=== PATIENT | male | born 1945 | race Hispanic/Latino ===

== ENCOUNTER 2020-08-23 19:42 | Observation (INO) | payer MEDICARE ==
[2020-08-23] MEDS ORDERED: SODIUM CHLORIDE 0.9% 1000 ML 1,000 ML IV ONE (19:56)
[2020-08-23] MEDS ORDERED: ONDANSETRON 4 MG/2 ML INJ IV ONE (19:56)
--- NOTE | 2020-08-23 20:02 | Emergency Department Report ---
ED Syncope HPI - General Chief Complaint: Chest Pain Stated Complaint: SYNCOPE/LOW BLOOD PRESSURE Time Seen by Provider: 08/23/20 19:52 Source: patient, EMS - History of Present Illness Initial Comments: 75-year-old male, no past medical history, presents to ED following syncopal episode. Patient lives in a personal long-term. He was table eating dinner, when he vomited and passed out. Upon EMS arrival, patient was somewhat confused, diaphoretic, hypotensive (systolic in the 80s), and bradycardic. Patient is currently awake and alert. He reports some chest tightness. He denies any headache, abdominal pain, fever, diarrhea, cough, shortness of breath. Patient able to state his name and location, however he states that the year is 2019. He also states that the month is July. Patient actively vomited stomach contents during my assessment. Timing/Prior Episodes: single episode today Precipitating Factors: Positive: none Context: sitting Loss of Consciousness: brief (seconds) Current Symptoms: chest pain, nausea. denies: dizziness, headache - Related Data Allergies/Adverse Reactions: Allergies No Known Allergies Allergy (Verified 08/24/20 00:26) Home Medications: Ambulatory Orders Aspirin [Adult Aspirin] 81 mg PO DAILY 08/24/20 Atorvastatin Calcium [Lipitor] 80 mg PO QHS 08/24/20 Clopidogrel [Plavix] 75 mg PO QDAY 08/24/20 Divalproex [Brendan SMALL] 250 mg PO TID 08/24/20 Metformin HCl [metFORMIN] 1,000 mg PO BID 08/24/20 QUEtiapine [SEROquel] 200 mg PO QHS 08/24/20 donepeziL [Aricept] 10 mg PO QDAY 08/24/20 ED Review of Systems ROS: Stated complaint: SYNCOPE/LOW BLOOD PRESSURE Other details as noted in HPI Comment: All other systems reviewed and negative Constitutional: denies: chills, fever Respiratory: denies: cough, shortness of breath Cardiovascular: chest pain Gastrointestinal: nausea, vomiting. denies: abdominal pain, diarrhea Neurological: denies: headache ED Past Medical Hx - Past Medical History Previous Medical History?: No - Surgical History Past Surgical History?: No - Social History Smoking Status: Never Smoker Substance Use Type: None - Medications Home Medications: Home Medications Medication Instructions Recorded Confirmed Last Taken Type Aspirin [Adult Aspirin] 81 mg PO DAILY 08/24/20 08/24/20 Unknown History Atorvastatin Calcium [Lipitor] 80 mg PO QHS 08/24/20 08/24/20 Unknown History Clopidogrel [Plavix] 75 mg PO QDAY 08/24/20 08/24/[address] [DepaKOTE DR] 250 mg PO TID 08/24/20 08/24/20 Unknown History Metformin HCl [metFORMIN] 1,000 mg PO BID 08/24/20 08/24/20 Unknown History QUEtiapine [SEROquel] 200 mg PO QHS 08/24/20 08/24/20 Unknown History donepeziL [Aricept] 10 mg PO QDAY 08/24/20 08/24/20 Unknown History ED Physical Exam - General Limitations: No Limitations General appearance: alert, in no apparent distress - Head Head exam: Present: atraumatic, normocephalic - Eye Eye exam: Present: normal appearance, PERRL, EOMI - ENT ENT exam: Present: mucous membranes moist - Neck Neck exam: Present: normal inspection - Respiratory Respiratory exam: Present: normal lung sounds bilaterally. Absent: respiratory distress - Cardiovascular Cardiovascular Exam: Present: regular rate, normal rhythm - GI/Abdominal GI/Abdominal exam: Present: soft. Absent: distended, tenderness - Extremities Exam Extremities exam: Present: normal inspection - Neurological Exam Neurological exam: Present: alert. Absent: oriented X3 (oriented to self and place, states year is 2019) - Psychiatric Psychiatric exam: Present: normal affect, normal mood - Skin Skin exam: Present: warm, dry, intact, normal color. Absent: rash ED Course Vital Signs 08/23/20 08/23/20 08/23/20 19:50 19:54 20:00 Temperature 98.5 F Pulse Rate 91 H 80 Respiratory 19 18 17 Rate Blood Pressure 138/66 129/61 O2 Sat by Pulse 92 100 95 Oximetry 08/23/20 08/23/20 08/23/20 20:14 20:20 20:33 Temperature Pulse Rate Respiratory Rate Blood Pressure 122/68 122/68 134/65 O2 Sat by Pulse 100 19 L Oximetry 08/23/20 08/23/20 08/23/20 20:46 21:00 21:16 Temperature Pulse Rate Respiratory Rate Blood Pressure 127/64 131/80 120/63 O2 Sat by Pulse 97 99 95 Oximetry 08/23/20 08/23/20 08/23/20 21:30 21:45 22:00 Temperature Pulse Rate 80 Respiratory 16 Rate Blood Pressure 118/63 129/61 122/68 O2 Sat by Pulse 96 95 Oximetry 08/23/20 08/23/20 08/23/20 22:15 22:30 22:45 Temperature Pulse Rate 99 H Respiratory 13 Rate Blood Pressure 134/65 127/86 133/91 O2 Sat by Pulse 98 Oximetry 08/23/20 08/23/20 08/23/20 23:00 23:16 23:30 Temperature Pulse Rate Respiratory Rate Blood Pressure 133/91 124/71 134/65 O2 Sat by Pulse 97 98 97 Oximetry 08/23/20 23:46 Temperature Pulse Rate Respiratory Rate Blood Pressure 128/76 O2 Sat by Pulse 100 Oximetry ED Medical Decision Making - Lab Data Result diagrams: 08/23/20 20:09 08/23/20 20:09 - EKG Data -: EKG Interpreted by [facility] EKG shows normal: sinus rhythm, axis, QRS complexes, ST-T waves Rate: normal - EKG Data Interpretation: no acute changes, other (prolonged MN) - Radiology Data Radiology results: report reviewed, image reviewed - Medical Decision Making 75-year-old male presents to ED following syncopal episode at his personal long-term. Patient was evidently sitting at the dinner table when he passed out. He denies any precipitating symptoms. Patient currently is reporting tightness in his chest. He is unsure if he experienced the pain prior to his syncopal episode. Upon EMS arrival, patient was hypotensive and diaphoretic. Here in ED blood pressure is normal. EKG negative for any acute findings. Troponin is negative as well. CTA chest shows no evidence of PE or dissection, or any other acute abnormalities. CT abdomen pelvis was also obtained due to patient's vomiting, and it is also unremarkable. Patient will be admitted to hospitalist, Dr. Flores, for further management of his syncope and chest pain. - Differential Diagnosis Arrhythmia, ACS, PE, bowel obstruction Critical care attestation.: If time is entered above; I have spent that time in minutes in the direct care of this critically ill patient, excluding procedure time. ED Disposition Clinical Impression: Syncope, Chest pain Disposition: OP ADMIT IP TO THIS HOSP Is pt being admited?: Yes Condition: Stable Time of Disposition: 23:23 HEART Score - HEART Score History: Slightly suspicious EKG: Normal Age: > 65 Risk factors: No known risk factors Troponin: Troponin T < 0.010 ng/mL (0.00-0.029) 08/23/20 22:37 Troponin: < normal limit HEART Score: 2
--- NOTE | 2020-08-23 20:13 | XRay Report ---
CHEST 1 VIEW 08/23/2020 7:06 PM INDICATION / CLINICAL INFORMATION: chest pain. COMPARISON: None available. FINDINGS: SUPPORT DEVICES: None. HEART / MEDIASTINUM: Cardiac silhouette demonstrates no significant abnormality. Aortic arch demonstr ates mild calcification. Hilar and mediastinal contours are otherwise unremarkable. LUNGS / PLEURA: No significant pulmonary or pleural abnormality. No pneumothorax. ADDITIONAL FINDINGS: No significant additional findings. IMPRESSION: 1. No acute findings. Signer Name: Calvin Aguilera MD Signed: 08/23/2020 8:09 PM Workstation Name: [id number]
[2020-08-23 20:21] LABS: Hematocrit 33.9 % (35.5-45.6); Hemoglobin 11.4 gm/dl (11.8-15.2); Mean Corpuscular HGB Conc 34 % (32-34); Mean Corpuscular Volume 95 fl (84-94); Platelet Count 321 K/mm3 (140-440); Red Blood Count 3.56 M/mm3 (3.65-5.03); Red Cell Distribution Width 14.5 % (13.2-15.2)
[2020-08-23 20:32] LABS: INR 1.04 (0.87-1.13)
[2020-08-23 20:44] LABS: Partial Thromboplastin Time 21.1 Sec. (24.2-36.6)
[2020-08-23 20:47] LABS: Alanine Aminotransferase 6 units/L (7-56); Albumin 3.1 g/dL (3.9-5); BUN/Creatinine Ratio 26; Blood Urea Nitrogen 23 mg/dL (9-20); Calcium 7.7 mg/dL (8.4-10.2); Hemolysis Index 14
[2020-08-23 20:56] LABS: Bilirubin,Direct < 0.2 mg/dL (0-0.2)
[2020-08-23 21:03] LABS: Myelocytes # (Manual) 0.4 K/mm3; Total Cells Counted 100
--- NOTE | 2020-08-23 22:26 | Cat Scan Report ---
CTA CHEST, CT ABDOMEN AND PELVIS WITH IV CONTRAST INDICATION / CLINICAL INFORMATION: chest pain. TECHNIQUE: Axial CT images were obtained through the chest, abdomen, and pelvis after 100 cc Omnipaque 350 IV co ntrast. Chest imaging performed per CTA PE protocol. All CT scans at this location are performed usin g CT dose reduction for ALARA by means of automated exposure control. COMPARISON: Chest radiograph 08/23/2020 FINDINGS: NECK BASE: No significant abnormality. HEART: Multivessel coronary artery atherosclerotic calcification. MEDIASTINUM and MEME: No significant abnormality. LUNGS/PLEURA: Patchy subsegmental volume loss in the bilateral lung bases. Moderate apical predominan t pulmonary emphysema. No definite suspicious pulmonary nodule. No pulmonary mass. No pleural effusio n or pneumothorax. HEPATOBILIARY: No significant abnormality. PANCREAS/SPLEEN/ADRENALS: No significant abnormality. GENITOURINARY: 1.5 cm left simple renal cyst as well as a few other focal hypodensities which are too small to definitely characterize, possible cysts. No solid renal mass. No obstructive uropathy. Blad rosalio demonstrates no significant abnormality. GASTROINTESTINAL/MESENTERY: Diverticulosis coli without evidence of diverticulitis. No bowel obstruct ion or inflammation. Tiny hiatal hernia. Mild gastric wall thickening at the distal portion could rep resent gastritis. No free air or significant free fluid is visualized. RETROPERITONEUM: No significant adenopathy. REPRODUCTIVE ORGANS: No significant abnormality. VASCULAR: Satisfactory opacification of the pulmonary arteries without filling defect to suggest pulm onary thromboembolism. Thoracic aorta demonstrates moderate mixed density atherosclerosis. Abdominal aorta demonstrates severe extensive atherosclerosis without convincing evidence of hemodynamically si gnificant stenosis. No acute vascular abnormality is noted. BODY WALL: Small bilateral fat-containing inguinal hernias. SKELETAL SYSTEM: Nondisplaced fracture at the lateral right 10th rib, age-indeterminate. No aggressiv e osseous lesion. IMPRESSION: 1. No CT evidence of pulmonary embolism. 2. Patchy subsegmental volume loss in the bilateral lung bases could represent atelectasis or consoli dation. 3. Mild gastric wall thickening predominantly at the antrum possibly representing gastritis. 4. Diverticulosis coli without evidence of diverticulitis. 5. Additional findings as above. Signer Name: Calvin Aguilera MD Signed: 08/23/2020 10:22 PM Workstation Name: [id number]
[2020-08-23] MEDS ORDERED: ASPIRIN 325 MG TAB PO ONE (23:21)
[2020-08-24] MEDS ORDERED: MORPHINE 2 MG/1 ML INJ IV PRN (00:12)
[2020-08-24] MEDS ORDERED: ONDANSETRON 4 MG/2 ML INJ IV PRN (00:12)
[2020-08-24] MEDS ORDERED: ACETAMINOPHEN 325 MG TAB PO PRN (00:14)
[2020-08-24] MEDS: HEPARIN 5,000 UNIT/1 ML VIAL SUB-Q SCH ×3 (00:52→21:29)
--- NOTE | 2020-08-24 03:20 | History and Physical Report ---
History of Present Illness Date of examination: 08/23/20 Date of admission: 08/23/20 23:24 Chief complaint: Chief complaint is syncopal attack History of present illness: History of presenting illness, patient is a 75-year-old male who came from a personal usp, patient was noted by the facility to be sitting down and eating and then vomited and subsequently passed out. There was no prior history of chest pain shortness of breath fever or dizziness and patient was subsequently transferred to the emergency room by EMS and found to be diaphoretic with low blood pressure and bradycardia. There was history of chest tightness and confusion but patient denied history of fever, chills, shortness of breath, cough or body aches Past History Past Surgical History: No surgical history Social history: no significant social history Family history: no significant family history Medications and Allergies Allergies Allergy/AdvReac Type Severity Reaction Status Date / Time No Known Allergies Allergy Verified 08/24/20 00:26 Home Medications Medication Instructions Recorded Confirmed Last Taken Type Aspirin [Adult Aspirin] 81 mg PO DAILY 08/24/20 08/24/20 Unknown History Atorvastatin Calcium [Lipitor] 80 mg PO QHS 08/24/20 08/24/20 Unknown History Clopidogrel [Plavix] 75 mg PO QDAY 08/24/20 08/24/[address] [DepStasTE DR] 250 mg PO TID 08/24/20 08/24/20 Unknown History Metformin HCl [metFORMIN] 1,000 mg PO BID 08/24/20 08/24/20 Unknown History QUEtiapine [SEROquel] 200 mg PO QHS 08/24/20 08/24/20 Unknown History donepeziL [Aricept] 10 mg PO QDAY 08/24/20 08/24/20 Unknown History Active Meds: Active Medications Acetaminophen (Acetaminophen 325 Mg Tab) 650 mg PO Q4H PRN PRN Reason: Headache Aspirin (Aspirin 325 Mg Tab) 325 mg PO QDAY [facility] Heparin Sodium (Porcine) (Heparin 5,000 Unit/1 Ml Vial) 5,000 unit SUB-Q Q12HR ESTEFANY Last Admin: 08/24/20 00:52 Dose: 5,000 unit Documented by: Sodium Chloride (Nacl 0.9% 1000 Ml) 1,000 mls @ 75 mls/hr IV DIRECT ESTEFANY Morphine Sulfate (Morphine 2 Mg/1 Ml Inj) 2 mg IV Q4H PRN PRN Reason: Pain, Moderate (4-6) Ondansetron HCl (Ondansetron 4 Mg/2 Ml Inj) 4 mg IV Q8H PRN PRN Reason: Nausea And Vomiting Review of Systems Constitutional: sweats, weakness, no fever, no chills, no anorexia, no fatigue, no malaise Eyes: bilateral: other (NO BILATERAL EYE SYMPTOMS) Ears, nose, mouth and throat: no ear pain Cardiovascular: chest pain, syncope, no orthopnea, no palpitations, no rapid/irregular heart beat, no edema, no lightheadedness, no shortness of breath Respiratory: no cough, no shortness of breath, no dyspnea on exertion, no congestion, no wheezing Gastrointestinal: nausea, vomiting, no abdominal pain, no diarrhea, no constipation, no hematemesis Genitourinary Male: no hematuria, no urinary frequency, no urinary hesitancy, no nocturia Rectal: no pain Musculoskeletal: no neck stiffness, no neck pain Integumentary: no rash, no pruritis, no redness, no sores Neurological: weakness, confusion, no parathesias, no numbness, no tingling, no seizures, no syncope, no tremors, no vertigo, no headaches Psychiatric: no anxiety, no depression Endocrine: no polydipsia, no polyuria, no nocturia Hematologic/Lymphatic: no easy bruising, no easy bleeding Exam - Constitutional Vitals: Temp Pulse Resp BP Pulse Ox 98.5 F 99 H 13 132/77 98 08/23/20 19:50 08/24/20 01:07 08/23/20 22:30 08/24/20 00:45 08/24/20 00:00 General appearance: Present: mild distress - EENT Eyes: Present: PERRL, EOM intact ENT: hearing intact, clear oral mucosa - Neck Neck: Present: supple, normal ROM - Respiratory Respiratory effort: normal - Cardiovascular Rhythm: regular Heart Sounds: Present: S1 & S2. Absent: systolic murmur, diastolic murmur - Extremities Extremities: no ischemia, No edema - Abdominal General gastrointestinal: Present: soft, non-tender, non-distended. Absent: tender, distended, rigid, hepatomegaly, splenomegaly Male genitourinary: Present: deferred - Rectal Rectal Exam: deferred - Integumentary Integumentary: Present: clear, warm, dry - Musculoskeletal Musculoskeletal: generalized weakness - Psychiatric Psychiatric: appropriate mood/affect HEART Score - HEART Score EKG: Normal Age: > 65 Risk factors: No known risk factors Troponin: Troponin T < 0.010 ng/mL (0.00-0.029) 08/23/20 22:37 Troponin: < normal limit - Critical Actions Critical Actions: 0-3 pts:0.9-1.7%risk of adverse cardiac event.Candidate for discharge Results - Labs CBC & Chem 7: 08/23/20 20:09 08/23/20 20:09 Labs: Laboratory Last Values WBC 7.2 K/mm3 (4.5-11.0) 08/23/20 20: RBC 3.56 M/mm3 (3.65-5.03) L 08/23/20 20: Hgb 11.4 gm/dl (11.8-15.2) L 08/23/20 20: Hct 33.9 % (35.5-45.6) L 08/23/20 20: MCV 95 fl (84-94) H 08/23/20 20:09 MCH 32 pg (28-32) 08/23/20 20:09 MCHC 34 % (32-34) 08/23/20 20:09 RDW 14.5 % (13.2-15.2) 08/23/20 20:09 Plt Count 321 K/mm3 (140-440) 08/23/20 20:09 Add Manual Diff Complete 08/23/20 20: Total Counted 100 08/23/20 20:09 Seg Neuts % (Manual) 58.0 % (40.0-70.0) 08/23/20 20:09 Lymphocytes % (Manual) 32.0 % (13.4-35.0) 08/23/20 20:09 Monocytes % (Manual) 4.0 % (0.0-7.3) 08/23/20 20:09 Metamyelocytes % 1.0 % 08/23/20 20:09 Myelocytes % 5.0 % 08/23/20 20:09 Promyelocytes % 0 % 08/23/20 20:09 Nucleated RBC % Not Reportable 08/23/20 20: Seg Neutrophils # Man 4.2 K/mm3 (1.8-7.7) 08/23/20 20:09 Band Neutrophils # 0.0 K/mm3 08/23/20 20:09 Lymphocytes # (Manual) 2.3 K/mm3 (1.2-5.4) 08/23/20 20:09 Abs React Lymphs (Man) 0.0 K/mm3 08/23/20 20:09 Monocytes # (Manual) 0.3 K/mm3 (0.0-0.8) 08/23/20 20:09 Eosinophils # (Manual) 0.0 K/mm3 (0.0-0.4) 08/23/20 20:09 Basophils # (Manual) 0.0 K/mm3 (0.0-0.1) 08/23/20 20:09 Metamyelocytes # 0.1 K/mm3 08/23/20 20:09 Myelocytes # 0.4 K/mm3 08/23/20 20:09 Promyelocytes # 0.0 K/mm3 08/23/20 20:09 Blast Cells # 0.0 K/mm3 08/23/20 20:09 WBC Morphology Not Reportable 08/23/20 20:09 Hypersegmented Neuts Not Reportable 08/23/20 20:09 Hyposegmented Neuts Not Reportable 08/23/20 20:09 Hypogranular Neuts Not Reportable 08/23/20 20:09 Smudge Cells Not Reportable 08/23/20 20:09 Toxic Granulation Not Reportable 08/23/20 20:09 Toxic Vacuolation Not Reportable 08/23/20 20:09 Dohle Bodies Not Reportable 08/23/20 20:09 Pelger-Huet Anomaly Not Reportable 08/23/20 20:09 Zoila Rods Not Reportable 08/23/20 20:09 Platelet Estimate Appears normal 08/23/20 20:09 Clumped Platelets Not Reportable 08/23/20 20:09 Plt Clumps, EDTA Not Reportable 08/23/20 20:09 Large Platelets Not Reportable 08/23/20 20:09 Giant Platelets Not Reportable 08/23/20 20:09 Platelet Satelliting Not Reportable 08/23/20 20:09 Plt Morphology Comment Not Reportable 08/23/20 20:09 RBC Morphology Not Reportable 08/23/20 20:09 Dimorphic RBCs Not Reportable 08/23/20 20:09 Polychromasia Not Reportable 08/23/20 20:09 Hypochromasia Not Reportable 08/23/20 20:09 Poikilocytosis Not Reportable 08/23/20 20:09 Anisocytosis Not Reportable 08/23/20 20:09 Microcytosis Not Reportable 08/23/20 20:09 Macrocytosis Not Reportable 08/23/20 20:09 Spherocytes Not Reportable 08/23/20 20:09 Pappenheimer Bodies Not Reportable 08/23/20 20:09 Sickle Cells Not Reportable 08/23/20 20:09 Target Cells Not Reportable 08/23/20 20:09 Tear Drop Cells Not Reportable 08/23/20 20:09 Ovalocytes Not Reportable 08/23/20 20:09 Helmet Cells Not Reportable 08/23/20 20:09 Cheek-Sagamore Bodies Not Reportable 08/23/20 20:09 [place] Rings Not Reportable 08/23/20 20:09 Alek Cells Not Reportable 08/23/20 20:09 Bite Cells Not Reportable 08/23/20 20:09 Crenated Cell Not Reportable 08/23/20 20:09 Elliptocytes 1+ 08/23/20 20:09 Acanthocytes (Spur) Not Reportable 08/23/20 20:09 Rouleaux Not Reportable 08/23/20 20:09 Hemoglobin C Crystals Not Reportable 08/23/20 20:09 Schistocytes Not Reportable 08/23/20 20:09 Malaria parasites Not Reportable 08/23/20 20:09 Mandeep Bodies Not Reportable 08/23/20 20:09 Hem Pathologist Commnt No 08/23/20 20:09 PT 13.5 Sec. (12.2-14.9) 08/23/20 20:09 INR 1.04 (0.87-1.13) 08/23/20 20:09 APTT 21.1 Sec. (24.2-36.6) L 08/23/20 20:09 D-Dimer 750.79 ng/mlDDU (0-234) H 08/23/20 20:09 Sodium 137 mmol/L (137-145) 08/23/20 20:09 Potassium 3.6 mmol/L (3.6-5.0) 08/23/20 20:09 Chloride 101.7 mmol/L (98-107) 08/23/20 20:09 Carbon Dioxide 20 mmol/L (22-30) L 08/23/20 20:09 Anion Gap 19 mmol/L 08/23/20 20:09 BUN 23 mg/dL (9-20) H 08/23/20 20:09 Creatinine 0.9 mg/dL (0.8-1.3) 08/23/20 20:09 Estimated GFR > 60 ml/min 08/23/20 20:09 BUN/Creatinine Ratio 26 % 08/23/20 20:09 Glucose 234 mg/dL (75-100) H 08/23/20 20:09 Calcium 7.7 mg/dL (8.4-10.2) L 08/23/20 20:09 Total Bilirubin 0.40 mg/dL (0.1-1.2) 08/23/20 20:09 Direct Bilirubin < 0.2 mg/dL (0-0.2) 08/23/20 20:09 Indirect Bilirubin 0.2 mg/dL 08/23/20 20:09 AST 12 units/L (5-40) 08/23/20 20:09 ALT 6 units/L (7-56) L 08/23/20 20:09 Alkaline Phosphatase 55 units/L (35-129) 08/23/20 20:09 Troponin T < 0.010 ng/mL (0.00-0.029) 08/23/20 22:37 Total Protein 5.2 g/dL (6.3-8.2) L 08/23/20 20:09 Albumin 3.1 g/dL (3.9-5) L 08/23/20 20:09 Albumin/Globulin Ratio 1.5 % 08/23/20 20:09 Lipase 63 units/L (13-60) H 08/23/20 20:09 Assessment and Plan - Patient Problems (1) Chest pain Current Visit: Yes Status: Acute Plan to address problem: 1. SERIAL CARDIAC ENZYMES 2. CARDIOLOGY CONSULT 3. NITROPASTE 4.I.V MORPHINE FOR PAIN 5. I.V ZOFRAN FOR NAUSEA AND VOMITING 6. ASPIRIN PO 7.TYLENOL FOR FEVER/ HEADEACHE 8. SUBCUT HEPARIN FOR DVT PROPHYLAXIS 9. OXYGEN BY N/CANNULA (2) Syncope Current Visit: Yes Status: Acute Plan to address problem: 1. SERIAL CARDIAC ENZYMES 2. 2 D ECHOCARDIOGRAM 3. BILATERAL CAROTID DOPPLER ULTRASOUND 4. SERIAL CARDIAC ENZYMES 5.I.V NORMAL SALINE MAINTENANCE FLUID 6. OXYGEN BY NASAL CANNULA
[2020-08-24] MEDS: SODIUM CHLORIDE 0.9% 1000 ML 1,000 ML IV SCH ×2 (03:51→17:45)
[2020-08-24 06:38] LABS: Creatine Kinase MB 2.1 ng/mL (0.0-4.0)
[2020-08-24] MEDS: ASPIRIN 325 MG TAB PO SCH (09:44)
--- NOTE | 2020-08-24 11:24 | Event Note ---
Date: 08/24/20 Patient seen and examined He is awake and alert and oriented He offers no specific complaints Lab results reviewed Troponin x2 - CTA chest results reviewed Patient has history of diabetes and states it is diet controlled Accu-Cheks reviewed Start on insulin sliding scale coverage and check A1c D-dimer is elevated Venous Doppler of the lower extremities is ordered and pending We will do a Covid test as patient loosening community setting in a personal senior care
[2020-08-24] MEDS: INSULIN REGULAR, HUMAN 100 UNITS/1 ML SUB-Q SCH ×3 (11:54→21:29)
[2020-08-24 13:14] LABS: Creatine Kinase MB 1.7 ng/mL (0.0-4.0)
--- NOTE | 2020-08-24 13:30 | Consultation ---
History of Present Illness Consult date: 08/24/20 Consult reason: syncope History of present illness: patient is a 75-year-old male who came from a personal [place] [facility], patient was noted by the facility to be sitting down and eating and then vomited and subsequently passed out. There was no prior history of chest pain shortness of breath fever or dizziness and patient was subsequently transferred to the emergency room by EMS and found to be diaphoretic with low blood pressure and bradycardia. There was history of chest tightness and confusion but patient denied history of fever, chills, shortness of breath, cough or body aches. Patient has dementia, unable to recall the month or day of the year. Patient claims he was working for [employer] before he retired. He claims he is not a nd does not have any children. He quit smoking and drinking 10 years ago. Past History Past Medical History: diabetes Past Surgical History: No surgical history Social history: no significant social history Family history: no significant family history Medications and Allergies Allergies Allergy/AdvReac Type Severity Reaction Status Date / Time No Known Allergies Allergy Verified 08/24/20 00:26 Home Medications Medication Instructions Recorded Confirmed Last Taken Type Aspirin [Adult Aspirin] 81 mg PO DAILY 08/24/20 08/24/20 Unknown History Atorvastatin Calcium [Lipitor] 80 mg PO QHS 08/24/20 08/24/20 Unknown History Clopidogrel [Plavix] 75 mg PO QDAY 08/24/20 08/24/[address] [Brendan DR] 250 mg PO TID 08/24/20 08/24/20 Unknown History Metformin HCl [metFORMIN] 1,000 mg PO BID 08/24/20 08/24/20 Unknown History QUEtiapine [SEROquel] 200 mg PO QHS 08/24/20 08/24/20 Unknown History donepeziL [Aricept] 10 mg PO QDAY 08/24/20 08/24/20 Unknown History Active Meds: Active Medications Acetaminophen (Acetaminophen 325 Mg Tab) 650 mg PO Q4H PRN PRN Reason: Headache Aspirin (Aspirin 325 Mg Tab) 325 mg PO QDAY [facility] Last Admin: 08/24/20 09:44 Dose: 325 mg Documented by: Heparin Sodium (Porcine) (Heparin 5,000 Unit/1 Ml Vial) 5,000 unit SUB-Q Q12HR [facility] Last Admin: 08/24/20 09:44 Dose: Not Given Documented by: Sodium Chloride (Nacl 0.9% 1000 Ml) 1,000 mls @ 75 mls/hr IV DIRECT ESTEFANY Last Admin: 08/24/20 03:51 Dose: 75 mls/hr Documented by: Insulin Human Regular (Insulin Regular, Human 100 Units/1 Ml) 0 units SUB-Q ACHS ESTEFANY; Protocol Last Admin: 08/24/20 11:54 Dose: Not Given Documented by: Morphine Sulfate (Morphine 2 Mg/1 Ml Inj) 2 mg IV Q4H PRN PRN Reason: Pain, Moderate (4-6) Ondansetron HCl (Ondansetron 4 Mg/2 Ml Inj) 4 mg IV Q8H PRN PRN Reason: Nausea And Vomiting Review of Systems Constitutional: other (Nausea and vomiting), no weight loss Cardiovascular: chest pain, syncope Respiratory: no cough, no wheezing, no sleep apnea Gastrointestinal: vomiting, no abdominal pain Genitourinary Male: no hematuria, no flank pain Musculoskeletal: no neck pain Neurological: no head injury, no paralysis, no vertigo Psychiatric: memory loss Physical Examination Vital Signs Temp Pulse Resp BP Pulse Ox 98.5 F 91 H 19 138/66 92 08/23/20 19:50 08/23/20 19:50 08/23/20 19:50 08/23/20 19:50 08/23/20 19:50 General appearance: no acute distress HEENT: Negative: Jaundice Neck: Negative: JVD/HJR Results 08/23/20 20:09 08/23/20 20:09 Cardiac Enzymes 08/23/20 08/24/20 08/24/20 Range/Units 20:09 05:41 12:10 AST 12 (5-40) units/L CK-MB (CK-2) 2.1 1.7 (0.0-4.0) ng/mL Coagulation 08/23/20 Range/Units 20:09 PT 13.5 (12.2-14.9) Sec. INR 1.04 (0.87-1.13) APTT 21.1 L (24.2-36.6) Sec. CBC 08/23/20 Range/Units 20:09 WBC 7.2 (4.5-11.0) K/mm3 RBC 3.56 L (3.65-5.03) M/mm3 Hgb 11.4 L (11.8-15.2) gm/dl Hct 33.9 L (35.5-45.6) % Plt Count 321 (140-440) K/mm3 Comprehensive Metabolic Panel 08/23/20 Range/Units 20:09 Sodium 137 (137-145) mmol/L Potassium 3.6 (3.6-5.0) mmol/L Chloride 101.7 (98-107) mmol/L Carbon Dioxide 20 L (22-30) mmol/L BUN 23 H (9-20) mg/dL Creatinine 0.9 (0.8-1.3) mg/dL Glucose 234 H (75-100) mg/dL Calcium 7.7 L (8.4-10.2) mg/dL Direct Bilirubin < 0.2 (0-0.2) mg/dL Indirect Bilirubin 0.2 mg/dL AST 12 (5-40) units/L ALT 6 L (7-56) units/L Alkaline Phosphatase 55 (35-129) units/L Total Protein 5.2 L (6.3-8.2) g/dL Albumin 3.1 L (3.9-5) g/dL EKG interpretations - Telemetry EKG Rhythm: Sinus Bradycardia - EKG Sinus rhythms and dysrhythmias: sinus bradycardia Assessment and Plan - Patient Problems (1) Chest pain Current Visit: Yes Status: Acute Qualifiers: Chest pain type: other chest pain Qualified Code(s): R07.89 - Other chest pain; R07.8 - Other chest pain Plan to address problem: Patient will have an echocardiogram and myocardial perfusion scan on Wednesday because of risk factors namely diabetes mellitus, past history of smoking. (2) Syncope Current Visit: Yes Status: Acute Qualifiers: Syncope type: vasovagal syncope Qualified Code(s): R55 - Syncope and collapse Plan to address problem: Possibly vasovagal syncope because of bradycardia and low blood pressure. However dehydration and hypotension may cause syncopal episode. Patient continues to have sinus bradycardia and we are monitoring him on telemetry. (3) DM type 2 (diabetes mellitus, type 2) Current Visit: Yes Status: Acute
[2020-08-24 18:02] LABS: Bilirubin,Urine NEG (Negative); Blood,Urine NEG (Negative); Color,Urine Yellow (Yellow); Mucus,Urine 2+ /HPF; Protein,Urine <15 mg/dL mg/dL (Negative)
[2020-08-25 05:12] LABS: Hematocrit 33.2 % (35.5-45.6); Hemoglobin 11.2 gm/dl (11.8-15.2); Mean Corpuscular HGB Conc 34 % (32-34); Mean Corpuscular Volume 95 fl (84-94); Platelet Count 307 K/mm3 (140-440); Red Blood Count 3.51 M/mm3 (3.65-5.03); Red Cell Distribution Width 14.5 % (13.2-15.2)
[2020-08-25 05:24] LABS: BUN/Creatinine Ratio 23; Blood Urea Nitrogen 18 mg/dL (9-20); Calcium 7.9 mg/dL (8.4-10.2); Hemolysis Index 4
[2020-08-25] MEDS: INSULIN REGULAR, HUMAN 100 UNITS/1 ML SUB-Q SCH ×4 (08:44→22:28)
[2020-08-25] MEDS: HEPARIN 5,000 UNIT/1 ML VIAL SUB-Q SCH ×2 (10:04→22:18)
[2020-08-25] MEDS: ASPIRIN 325 MG TAB PO SCH (10:04)
[2020-08-25] MEDS: SODIUM CHLORIDE 0.9% 1000 ML 1,000 ML IV SCH (10:06)
--- NOTE | 2020-08-25 11:06 | Progress Note ---
Assessment and Plan - Patient Problems (1) Chest pain Current Visit: Yes Status: Acute Qualifiers: Chest pain type: other chest pain Qualified Code(s): R07.89 - Other chest pain; R07.8 - Other chest pain Plan to address problem: Chest pain patient is scheduled for perfusion scan and echocardiogram in the a.m. Patient chest pain-free at this particular time. Cardiology recommendations follow-up. Appreciate input. Work-up for MRI unremarkable at this time. (2) DM type 2 (diabetes mellitus, type 2) Current Visit: Yes Status: Acute Plan to address problem: Uncontrolled with regular insulin. Will place patient back on low-dose Metformin in a.m. 500 mg twice daily and titrate accordingly. (3) Syncope Current Visit: Yes Status: Acute Qualifiers: Syncope type: vasovagal syncope Qualified Code(s): R55 - Syncope and collapse Plan to address problem: Patient with syncope was on Seroquel as well. Will hold for now. Rule out prolonged QT interval. Patient appears to be alert. Will start back on dementia meds however. No further evidence of bradycardia. (4) Dementia Current Visit: Yes Status: Acute (5) Hyperlipidemia associated with type 2 diabetes mellitus Current Visit: Yes Status: Acute Plan to address problem: We will reintroduce atorvastatin. Obtain better control of blood glucose. Subjective Date of service: 08/25/20 Interval history: patient is a 75-year-old male who came from a personal retirement, patient was noted by the facility to be sitting down and eating and then vomited and subsequently passed out. There was no prior history of chest pain shortness of breath fever or dizziness and patient was subsequently transferred to the emergency room by EMS and found to be diaphoretic with low blood pressure and bradycardia. There was history of chest tightness and confusion but patient denied history of fever, chills, shortness of breath, cough or body aches. Patient able to answer questions appropriately today. Understands about procedures tomorrow. All questions and concerns answered to patient satisfaction. Plan is for echocardiogram stress test a.m. Objective - Constitutional Vitals: Vital Signs - 12hr 08/25/20 08/25/20 07:44 10:00 Temperature 97.7 F Pulse Rate 68 70 Respiratory 12 Rate Blood Pressure 128/72 [Left] O2 Sat by Pulse 96 Oximetry General appearance: Present: no acute distress, well-nourished - EENT Eyes: PERRL, EOM intact ENT: hearing intact, clear oral mucosa Ears: bilateral: normal - Neck Neck: supple, normal ROM - Respiratory Respiratory effort: normal Respiratory: bilateral: CTA - Breasts Breasts: normal - Cardiovascular Rhythm: regular Heart Sounds: Present: S1 & S2. Absent: gallop, rub Extremities: pulses intact, No edema, normal color, Full ROM - Gastrointestinal General gastrointestinal: Present: soft, non-tender, non-distended, normal bowel sounds - Genitourinary Male genitourinary: normal - Integumentary Integumentary: clear, warm, dry - Musculoskeletal Musculoskeletal: 1, strength equal bilaterally - Neurologic Neurologic: moves all extremities - Psychiatric Psychiatric: memory intact, appropriate mood/affect, intact judgment & insight - Labs CBC & Chem 7: 08/25/20 04:29 08/25/20 04:29 Labs: Abnormal lab results 08/24/20 08/24/20 08/24/20 Range/Units 11:30 12:10 16:05 RBC (3.65-5.03) M/mm3 Hgb (11.8-15.2) gm/dl Hct (35.5-45.6) % MCV (84-94) fl Glucose (75-100) mg/dL POC Glucose 128 H 268 H (70-105) mg/dL Hemoglobin A1c (4-6) % Calcium (8.4-10.2) mg/dL Total Creatine Kinase 38 L (55-170) units/L CK-MB (CK-2) Rel Index 4.4 H (0-4) 08/24/20 08/25/20 08/25/20 Range/Units 20:06 04:29 04:29 RBC 3.51 L (3.65-5.03) M/mm3 Hgb 11.2 L (11.8-15.2) gm/dl Hct 33.2 L (35.5-45.6) % MCV 95 H (84-94) fl Glucose 74 L (75-100) mg/dL POC Glucose 255 H (70-105) mg/dL Hemoglobin A1c (4-6) % Calcium 7.9 L (8.4-10.2) mg/dL Total Creatine Kinase (55-170) units/L CK-MB (CK-2) Rel Index (0-4) 03/14/21 Range/Units 04:29 RBC (3.65-5.03) M/mm3 Hgb (11.8-15.2) gm/dl Hct (35.5-45.6) % MCV (84-94) fl Glucose (75-100) mg/dL POC Glucose (70-105) mg/dL Hemoglobin A1c 8.4 H (4-6) % Calcium (8.4-10.2) mg/dL Total Creatine Kinase (55-170) units/L CK-MB (CK-2) Rel Index (0-4) HEART Score - HEART Score EKG: Normal Age: > 65 Risk factors: No known risk factors Troponin: Troponin T < 0.010 ng/mL (0.00-0.029) 08/24/20 12:10 Troponin: < normal limit - Critical Actions Critical Actions: 0-3 pts:0.9-1.7%risk of adverse cardiac event.Candidate for discharge
--- NOTE | 2020-08-25 14:21 | Progress Note ---
Assessment and Plan - Patient Problems (1) Chest pain Current Visit: Yes Status: Acute Qualifiers: Chest pain type: other chest pain Qualified Code(s): R07.89 - Other chest pain; R07.8 - Other chest pain Plan to address problem: Patient will have an echocardiogram and myocardial perfusion scan on Wednesday because of risk factors namely diabetes mellitus, past history of smoking. Covid test is negative as of this morning. Therefore we can proceed with echocardiogram and myocardial perfusion testing for evaluation of a syncopal. (2) Syncope Current Visit: Yes Status: Acute Qualifiers: Syncope type: vasovagal syncope Qualified Code(s): R55 - Syncope and collapse Plan to address problem: Possibly vasovagal syncope because of bradycardia and low blood pressure. However dehydration and hypotension may cause syncopal episode. Patient continues to have sinus bradycardia and we are monitoring him on telemetry. (3) DM type 2 (diabetes mellitus, type 2) Current Visit: Yes Status: Acute Subjective Date of service: 08/25/20 Interval history: No Chest pains. Objective Vital Signs Temp Pulse Resp BP BP Pulse Ox 08/25/20 11:45 98.2 F 78 18 109/54 91 08/25/20 10:00 70 08/25/20 07:44 97.7 F 68 12 128/72 96 08/25/20 04:49 97.9 F 69 16 94/58 98 08/24/20 23:37 98.3 F 66 16 85/54 97 08/24/20 22:00 82 08/24/20 20:10 94 08/24/20 19:02 98.6 F 82 16 105/60 94 08/24/20 16:14 69 111/55 08/24/20 15:46 98.2 F 71 15 78/56 95 - Physical Examination HEENT: Negative: Jaundice Neck: Negative: JVD/HJR - Labs and Meds CBC 08/25/20 Range/Units 04:29 WBC 7.1 (4.5-11.0) K/mm3 RBC 3.51 L (3.65-5.03) M/mm3 Hgb 11.2 L (11.8-15.2) gm/dl Hct 33.2 L (35.5-45.6) % Plt Count 307 (140-440) K/mm3 Comprehensive Metabolic Panel 03/14/21 Range/Units 04:29 Sodium 138 (137-145) mmol/L Potassium 3.8 (3.6-5.0) mmol/L Chloride 104.9 (98-107) mmol/L Carbon Dioxide 24 (22-30) mmol/L BUN 18 (9-20) mg/dL Creatinine 0.8 (0.8-1.3) mg/dL Glucose 74 L (75-100) mg/dL Calcium 7.9 L (8.4-10.2) mg/dL - Imaging and Cardiology Nuclear stress test: pending Echo: pending - Telemetry EKG Rhythm: Sinus Rhythm (74/m) - EKG Sinus rhythms and dysrhythmias: sinus bradycardia
[2020-08-25] MEDS: DONEPEZIL 10 MG TAB PO SCH (17:16)
[2020-08-25] MEDS ORDERED: QUEtiapine 200 MG TAB PO SCH (22:00)
[2020-08-25] MEDS: DIVALPROEX DR 250 MG TAB PO SCH (22:18)
[2020-08-26] MEDS ORDERED: REGADENOSON 0.4 MG/5 ML INJ IV NR (07:37)
[2020-08-26] MEDS: INSULIN REGULAR, HUMAN 100 UNITS/1 ML SUB-Q SCH (08:57)
[2020-08-26] MEDS: DIVALPROEX DR 250 MG TAB PO SCH (08:58)
[2020-08-26] MEDS: HEPARIN 5,000 UNIT/1 ML VIAL SUB-Q SCH (08:59)
[2020-08-26] MEDS: DONEPEZIL 10 MG TAB PO SCH (08:59)
[2020-08-26 09:22] VITALS: BP 191/101
--- NOTE | 2020-08-26 09:59 | Discharge Summary ---
Providers - Providers Date of Admission: 08/23/20 23:24 Date of discharge: 08/26/20 Attending physician: CANDIDO GAMEZ 08/24/20 00:06 Consult to Physician [CONS] Routine Comment: Consulting Provider: ISABELLA GRAHAM Physician Instructions: Reason For Exam: CHEST PAIN WITH SYNCOPE [facility] Condition: Stable Pertinent studies: Echocardiogram unremarkable normal ejection fraction. CT scan abdomen unremarkable CT angiogram unremarkable. Hospital course: Patient 75-year-old male with history of dementia, hyperlipidemia presented with a syncope associated bradycardia hypotension. Symptoms resolved with IV fluids. Patient did not have any chest pain. Since patient had a history of diabetes tobacco with syncope plan was made for patient to receive echocardiogram and stress test. Patient does have underlying dementia but has refused stress test refused IV fluids refused any further testing at this time. After reviewing patient's blood pressure there has potentially this is autonomic neuropathy. Patient's underlying dementia may be that of Parkinson's disease. Informed personal-custodial patient should be evaluated by neurology to confirm Parkinson's disease. It is possible he can be treated for different dementia. Patient be discharged back to personal custodial in stable condition. Unable to perform any further additional testing modalities. I have informed cardiology of patient's decision and inability to obtain any further testing. Patient appears that he is aware and nods yes to findings. And plan. Of note patient's blood pressure did go up and down. Highly suspicious of autonomic neuropathy therefore only start patient on low-dose calcium channel corey now to prevent further hypotension. As well as accelerated hypertension. Message left for Spring at her work do not have a phone number for home only [phone]. Disposition: DC- TO HOME OR SELFCARE Final Discharge Diagnosis (Prints w/discharge instructions): syncope - Discharge Diagnoses (1) Chest pain Status: Acute Qualifiers: Chest pain type: other chest pain Qualified Code(s): R07.89 - Other chest pain; R07.8 - Other chest pain Comment: Patient did not have any chest pain remain chest pain-free. Isoenzymes unremarkable. Echocardiogram unremarkable. Refuse any further testing. (2) DM type 2 (diabetes mellitus, type 2) Status: Acute Comment: Continue Metformin 500 mg twice daily. Unlikely hypoglycemia. (3) Syncope Status: Acute Qualifiers: Syncope type: vasovagal syncope Qualified Code(s): R55 - Syncope and collapse Comment: Syncope potential multifactorial. Appear to have some hypotension nausea during this episode. Has resolved. Most likely scenarios dehydration, vasovagal nausea vomiting and further on the differential given change in blood pressure autonomic neuropathy consistent with Parkinson's disease. Will recommend follow-up neurology evaluation to evaluate for Parkinson's and whether medical management for Parkinson's will make a difference. Will start patient on losartan will also provide renal protection upon discharge. This is been changed from amlodipine. (4) Dementia Status: Acute Comment: Nonspecific dementia. 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 Work-up should be include Parkinson's disease. Patient has masked face., Resting tremor and has some rigidity as well as changes in fluctuations in blood pressure. Rule out Parkinson's. Or Parkinson's-like syndrome. (5) Hyperlipidemia associated with type 2 diabetes mellitus Status: Acute Comment: Continue statin (6) Hypertension Status: Acute Comment: Patient fluctuations in blood pressure. Start patient on losartan 50 titrate accordingly rule out ulnar neuropathy. Core Measure Documentation - Palliative Care Palliative Care/ Comfort Measures: Not Applicable - Core Measures Any of the following diagnoses?: none Exam - Constitutional Vitals: Temp Pulse Resp BP Pulse Ox 97.7 F 78 18 191/101 99 08/26/20 07:45 08/26/20 07:45 08/26/20 07:45 08/26/20 07:45 08/26/20 07:45 General appearance: Present: no acute distress, well-nourished - EENT Eyes: Present: PERRL ENT: hearing intact, clear oral mucosa - Neck Neck: Present: supple, normal ROM - Respiratory Respiratory effort: normal Respiratory: bilateral: CTA - Cardiovascular Heart Sounds: Present: S1 & S2. Absent: rub, click - Extremities Extremities: pulses symmetrical, No edema Peripheral Pulses: within normal limits - Abdominal General gastrointestinal: Present: soft, non-tender, non-distended, normal bowel sounds Male genitourinary: Present: normal - Integumentary Integumentary: Present: clear, warm, dry - Musculoskeletal Musculoskeletal: gait normal, strength equal bilaterally - Psychiatric Psychiatric: appropriate mood/affect, intact judgment & insight - Neurologic Neurologic: CNII-XII intact, moves all extremities Plan Activity: fall precautions Weight Bearing Status: Weight Bear as Tolerated Diet: diabetic Special Instructions: record daily BP diary, physical therapy, other (neurology follow up) [facility] [Primary Care Provider] - 3-5 Days Prescriptions: Losartan [Cozaar] 50 mg PO QDAY #30 tablet
[2020-08-26] MEDS ORDERED: ASPIRIN EC 81 MG TAB PO SCH (10:00)
[2020-08-26] MEDS ORDERED: CLOPIDOGREL 75 MG TAB PO SCH (10:00)
--- NOTE | 2020-08-26 11:11 | Progress Note ---
Assessment and Plan Patient presented from alf with ?recurrent syncope and intermittent CP for approximately 3 months. He is a rather poor historian due to dementia. He reports some episodes of N/V associated with his syncopal episodes and was reportedly diaphoretic, hypotensive, with sinus bradycardia upon presentation- ?vasovagal syncope. However dehydration and hypotension may cause syncopal episode. Pt with ?poor PO intake. Tele reviewed. Pt is in SR with no arrhythmia since admission. AMI ruled out. Echo 08/24/20: EF 50-55%. Ddimer elevated. Chest CTA negative for PTE. Pt reports resolution of CP today. He is noted to be somewhat agitated and is refusing peripheral IV placement and thus we are unable to proceed with stress testing. Pt would like to be discharged. Currently stable cardiac status. Pt may discharge from cardiology standpoint. Of note: pt is noted to be on home medication Plavix. There is no apparent cardiac indication for plavix. Recommend f/u in our office with Dr Carpenter within 1-2 weeks of discharge. . This patient was seen in conjunction with Dr Cruz who agrees with this assessment and plan of care. - Patient Problems (1) Chest pain Current Visit: Yes Status: Resolved Qualifiers: Chest pain type: other chest pain Qualified Code(s): R07.89 - Other chest pain; R07.8 - Other chest pain (2) Syncope Current Visit: Yes Status: Acute Qualifiers: Syncope type: vasovagal syncope Qualified Code(s): R55 - Syncope and collapse (3) DM type 2 (diabetes mellitus, type 2) Current Visit: Yes Status: Chronic (4) Dementia Current Visit: Yes Status: Chronic (5) Hypertension Current Visit: Yes Status: Chronic Subjective Date of service: 08/26/20 Interval history: Patient resting in bed comfortably, alert and oriented. Tele reviewed: Sinus Rhythm 95. Objective Last Vital Signs Temp 97.7 F 08/26/20 07:45 Pulse 65 08/26/20 10:00 Resp 18 08/26/20 07:45 BP 191/101 08/26/20 07:45 Pulse Ox 99 08/26/20 07:45 - Physical Examination General: No Apparent Distress HEENT: Negative: Jaundice Neck: Negative: JVD/HJR Cardiac: Positive: Reg Rate and Rhythm Lungs: Positive: clear to auscultation, Normal Breath Sounds Neuro: Positive: Grossly Intact Abdomen: Positive: Unremarkable Skin: Negative: Rash, Wound Musculoskeletal: No Pain Extremities: Present: upper extr. pulses, lower extr. pulses. Absent: edema - Imaging and Cardiology Echo: report reviewed (Echo 08/24/20: EF 50-55%. ) - Telemetry EKG Rhythm: Sinus Rhythm - EKG Sinus rhythms and dysrhythmias: sinus bradycardia
== END 2020-08-26 16:35 | disposition home or self-care (01) ==
LOC: ED 19:42 → 4A 23:24
PROVIDERS: ADMIT Internal Medicine; ATTEND Internal Medicine
DX: R55 Syncope and collapse (principal); Z20.822 Contact with and (suspected) exposure to COVID-19; R07.89 Other chest pain; I10 Essential (primary) hypertension; E11.9 Type 2 diabetes mellitus without complications; R10.9 Unspecified abdominal pain; E78.5 Hyperlipidemia, unspecified; F03.90 Unspecified dementia, unspecified severity, without behavioral disturbance, psychotic disturbance, mood disturbance, and anxiety; Z79.82 Long term (current) use of aspirin; Z79.4 Long term (current) use of insulin
CPT/HCPCS: 36415; 71045; 71275; 74177; 80048; 80076; 81001; 82550; 82553; 82962; 83036; 83690; 84484; 85025; 85027; 85379; 85610; 85730; 93005; 93306; 96361; 96372; 96374; 99285; A9270; G0378; J1644; J2405; J7030; Q9967; U0003; 85007; J1815